=== PATIENT | female | born 1995 | race Caucasian/White ===

== ENCOUNTER 2022-12-06 15:15 | Observation (INO) | payer OTHER ==
[~2022-12-06] VITALS: Ht 152.4 cm; Wt 94.8 kg
[2022-12-06 16:07] VITALS: BP 98/53; PULSE 84; RESP 17; TEMP 98.8
== END 2022-12-06 16:55 | disposition home or self-care (01) ==
LOC: MLD 15:15
PROVIDERS: ADMIT Obstetrics & Gynecology; ATTEND Obstetrics & Gynecology
DX: O36.8130 Decreased fetal movements, third trimester, not applicable or unspecified (principal); Z3A.38 38 weeks gestation of pregnancy
CPT/HCPCS: 76819; G0378; Q0092

== ENCOUNTER 2022-12-13 16:00 | Inpatient (IN) | payer OTHER ==
[~2022-12-13] VITALS: Ht 152.4 cm; Wt 95.3 kg
[2022-12-13] MEDS ORDERED: CITRIC ACID/SODIUM CITRATE 30 ML UDC PO SCH (17:30)
[2022-12-13 17:59] LABS: BASOPHILS # (AUTO) 0.1 K/uL (0.00-0.22); BASOPHILS % (AUTO) 0.7 % (0.0-2.0); EOSINOPHILS # (AUTO) 0.1 K/uL (0-0.4); HEMOGLOBIN 12.1 g/dL (12.0-16.0); LYMPHOCYTES # (AUTO) 2.1 K/uL (2.5-16.5); LYMPHOCYTES % (AUTO) 15.7 % (20.5-51.1); MEAN CORPUSCULAR HEMOGLOBIN 30 pg (27-31); MEAN CORPUSCULAR HGB CONC 34 g/dL (33-37); MEAN CORPUSCULAR VOLUME 89.5 fL (80-94); MONOCYTES # (AUTO) 0.9 K/uL (0.8-1.0); MONOCYTES % (AUTO) 6.8 % (1.7-9.3); NEUTROPHILS # (AUTO) 10.4 K/uL (1.8-7.7); NEUTROPHILS % (AUTO) 75.8 % (42.2-75.2); PLATELET COUNT (AUTO) 320 K/uL (140-450); RED BLOOD CELL COUNT(AUTO) 4.02 MIL/uL (4.20-5.40); RED CELL DISTRIBUTION WIDTH 14.2 % (11.6-13.7); WHITE BLOOD COUNT (AUTO) 13.7 K/uL (4.8-10.8)
[2022-12-13 18:02] LABS: BILIRUBIN,URINE NEGATIVE (NEGATIVE); BLOOD, URINE NEGATIVE (NEGATIVE); COLOR,URINE YELLOW (YELLOW); LEUKOCYTE ESTERASE ,URINE 1+ (NEGATIVE); NITRITE, URINE NEGATIVE (NEGATIVE); PH,URINE 6.5 (5.0-9.0); PROTEIN,URINE NEGATIVE (NEGATIVE); UGLUCOSE NEGATIVE (NEGATIVE); UROBILINOGEN,URINE 0.2 EU/dL (0.2 - 1)
[2022-12-13 18:08] LABS: APPEARANCE,URINE SLIGHTLY CLOUDY (CLEAR)
[2022-12-13 18:13] LABS: BACTERIA,URINE 10-30 (MOD) /HPF (None Seen); RBC,URINE 0-5 /HPF (0-5); SQUAMOUS EPITHELIAL CELL,UR 4-10 (MOD) /LPF (0-3 (FEW))
[2022-12-13 18:14] LABS: ALBUMIN 2.7 g/dL (3.4-5.0); ANION GAP 16.4 (8-16); CALCIUM 8.8 mg/dL (8.5-10.1); CARBON DIOXIDE 20.3 mmol/L (21-32); CREATININE 0.4 mg/dL (0.6-1.3); POTASSIUM 3.7 mmol/L (3.5-5.1); TOTAL BILIRUBIN 0.4 mg/dL (0.0-1.0); TOTAL PROTEIN, SERUM 6.6 g/dL (6.4-8.2)
[2022-12-13] MEDS: LACTATED RINGERS 1,000 ML IV SCH ×2 (18:14→18:59)
[2022-12-13 18:15] LABS: INR 0.9 (0.8-1.2); PARTIAL THROMBOPLASTIN TIME 26.3 secs (22-35.6); PROTHROMBIN TIME 9.5 secs (10.8-13.4)
[2022-12-13 18:21] VITALS: BP 108/66; PULSE 102; RESP 18; TEMP 98.8
[2022-12-13] MEDS ORDERED: METOCLOPRAMIDE 10 MG/2 ML INJ VIAL IVP SCH (18:30)
[2022-12-13 18:41] LABS: AMPHETAMINE, URINE NEGATIVE ng/ml (NEG <=1000); BARBITURATE, URINE NEGATIVE ng/ml (NEG <=200); BENZODIAZEPINE, URINE NEGATIVE ng/mL (NEG <=200); CANNABINOID, URINE POSITIVE ng/mL (NEG <=50); COCAINE, URINE NEGATIVE ng/mL (NEG <=300); OPIATE, URINE NEGATIVE ng/mL (NEG <=2000); PHENCYCLIDINE SCREEN,URINE NEGATIVE ng/mL (NEG <=25)
[2022-12-13 18:53] LABS: HIV RAPID SCREEN NON-REACTIVE (NON REACTIV)
[2022-12-13] MEDS ORDERED: fentaNYL citrate 0.05 MG/ML VIAL ONE (19:20)
[2022-12-13] MEDS ORDERED: SIMETHICONE 80 MG TAB.CHEW PO PRN (20:00)
[2022-12-13] MEDS ORDERED: MEASLES, MUMPS, AND RUBELLA 1 VIAL SQVAC ONE (20:00)
[2022-12-13] MEDS ORDERED: KETOROLAC 30 MG/ML VIAL IVP PRN (20:00)
[2022-12-13] MEDS ORDERED: bisacodyL 5 MG TABEC PO PRN (20:00)
[2022-12-13] MEDS ORDERED: METHYLERGONOVINE 0.2 MG/ML AMP IM PRN (20:00)
[2022-12-13] MEDS ORDERED: ONDANSETRON 4 MG/2 ML VIAL IVP PRN (20:15)
[2022-12-13] MEDS ORDERED: diphenhydrAMINE 50 MG/ML VIAL IVP PRN (20:15)
[2022-12-13] MEDS ORDERED: MEPERIDINE 25 MG/ML SYR IVP PRN (20:15)
[2022-12-14] MEDS ORDERED: OXYTOCIN 20 UNITS/LR PREMIX 1,000 ML IV ONE (02:34)
[2022-12-14] MEDS ORDERED: FLU VACCINE QS2022-23 0.5 ML SYR IMVAC ONE (03:05)
[2022-12-14] MEDS ORDERED: MORPHINE SULFATE 10 MG/ML VIAL IVP PRN (03:20)
[2022-12-14] MEDS: KETOROLAC 30 MG/ML VIAL IVP SCH ×2 (03:34→12:20)
[2022-12-14] MEDS: OXYTOCIN 20 UNITS in LACTATED RINGERS 1,000 ML IV SCH ×2 (03:39→11:25)
[2022-12-14 05:37] LABS: BASOPHILS # (AUTO) 0.1 K/uL (0.00-0.22); BASOPHILS % (AUTO) 0.4 % (0.0-2.0); HEMATOCRIT 31.9 % (36-48); HEMOGLOBIN 10.8 g/dL (12.0-16.0); LYMPHOCYTES # (AUTO) 1.3 K/uL (2.5-16.5); LYMPHOCYTES % (AUTO) 7.1 % (20.5-51.1); MEAN CORPUSCULAR HEMOGLOBIN 30 pg (27-31); MEAN CORPUSCULAR HGB CONC 34 g/dL (33-37); MONOCYTES # (AUTO) 0.9 K/uL (0.8-1.0); MONOCYTES % (AUTO) 4.7 % (1.7-9.3); NEUTROPHILS # (AUTO) 16.6 K/uL (1.8-7.7); NEUTROPHILS % (AUTO) 87.8 % (42.2-75.2); PLATELET COUNT (AUTO) 295 K/uL (140-450); RED BLOOD CELL COUNT(AUTO) 3.58 MIL/uL (4.20-5.40); RED CELL DISTRIBUTION WIDTH 13.8 % (11.6-13.7); WHITE BLOOD COUNT (AUTO) 18.9 K/uL (4.8-10.8)
[2022-12-14] MEDS ORDERED: KETOROLAC 30 MG/ML VIAL IVP SCH (06:00)
[2022-12-14 06:39] VITALS: BP 104/69; PULSE 72; RESP 17; O2SAT 98
[2022-12-14 08:08] LABS: HEPATITIS A ANTIBODY IGM Negative (Negative); HEPATITIS B CORE AB TOTAL Negative (Negative); HEPATITIS B CORE, IGM Negative (Negative); HEPATITIS B SURFACE ANTIBODY Non Reactive (.); HEPATITIS B SURFACE ANTIGEN Negative (Negative); HEPATITIS C VIRUS ANTIBODY Non Reactive (Non Reactive)
[2022-12-14] MEDS ORDERED: IBUPROFEN 800 MG TAB PO PRN (19:30)
[2022-12-14] MEDS ORDERED: CAMERA MC ONE (19:38)
[2022-12-14] MEDS: oxyCODONE/APAP 5/325 MG 1 TAB TAB PO PRN (20:13)
[2022-12-15] MEDS: oxyCODONE/APAP 5/325 MG 1 TAB TAB PO PRN ×2 (10:48→17:14)
[2022-12-15 15:33] LABS: HEPATITIS A ANTIBODY TOTAL Positive (Negative)
== END 2022-12-15 18:30 | disposition home or self-care (01) | DRG 540 ==
LOC: OBSVTOIN 16:00 → MLD 16:00 → MFCC 21:30
PROVIDERS: ADMIT Obstetrics & Gynecology; ATTEND Obstetrics & Gynecology
PROC: 10D00Z1 Extraction of Products of Conception, Low, Open Approach (ICD-10-PCS; principal; 2022-12-14)
DX: O69.81X0 Labor and delivery complicated by cord around neck, without compression, not applicable or unspecified (principal); N73.6 Female pelvic peritoneal adhesions (postinfective); O34.211 Maternal care for low transverse scar from previous cesarean delivery; O99.892 Other specified diseases and conditions complicating childbirth; Z20.822 Contact with and (suspected) exposure to COVID-19; Z3A.39 39 weeks gestation of pregnancy; Z37.0 Single live birth
CPT/HCPCS: 36415; 51702; 80053; 80305; 81001; 85025; 85610; 85730; 86592; 86704; 86706; 86708; 86709; 86803; 86886; 86900; 86901; 87086; 87340; J0690; J1885; J2175; J2270; J2590; J3010; J7060; J7120